=== PATIENT | female | born 1975 | race Caucasian/White ===

== ENCOUNTER → 2019-03-20 19:48 | Outpatient (CLI) | payer OTHER, SELFPAY ==
--- NOTE | 2019-03-20 19:55 | DI.RAD.S_ITS ---
PROCEDURE: XR RIBS LT MIN 3V W CXR1V INDICATIONS: cough x3 mo, r/o fx TECHNIQUE: 2 views of the left ribs were acquired, along with a single view chest. COMPARISON: None. FINDINGS: Surgical changes and devices: None. Bones and chest wall: No fractures or dislocations. No suspicious bony lesions. Overlying soft tissues appear unremarkable. Lungs and pleura: No pleural effusions or pneumothorax. Lungs appear clear. Mediastinum: Mediastinal contours appear normal. Heart size is normal. IMPRESSION: No acute fracture. No osseous lesion. If symptoms and/or clinical suspicion for pathology persist, further assessment with repeat, or advanced imaging (e.g., CT or bone scan) may be helpful for further assessment. Dictated by: Dev Jarrell M.D. on 03/20/2019 at 20:23 Approved by: Dev Jarrell M.D. on 03/20/2019 at 20:23
== END ==
LOC: DI 19:53
PROVIDERS: PCP Obstetrics & Gynecology; Referring Provider Physician Assistant; Visit Provider Physician Assistant
DX: R07.81 Pleurodynia (principal); R05 Cough
CPT/HCPCS: 71101

== ENCOUNTER → 2020-08-18 12:52 | Outpatient (CLI) | payer OTHER, SELFPAY ==
[2020-08-18 15:58] LABS: HCG Quantitative /Beta subunit 14343 mIU/mL
== END ==
PROVIDERS: PCP Family Medicine; Referring Provider Family Medicine; Visit Provider Family Medicine
DX: Z34.81 Encounter for supervision of other normal pregnancy, first trimester (principal)
CPT/HCPCS: 36415; 84702

== ENCOUNTER → 2020-08-20 07:03 | Outpatient (CLI) | payer OTHER, SELFPAY ==
--- NOTE | 2020-08-20 07:04 | DI.US.S_ITS ---
PROCEDURE: US OB <= 14 WEEKS FETUS INDICATIONS: BLEEDING OUTSIDE/PRIOR DATING DATA: Last menstrual period (LMP): 06/20/2020. LMP-based estimated date of delivery (ELLEN): 03/25/2021. First dating scan (date and location): 08/20/2020. Estimated date of delivery (ELLEN) from first dating scan: 04/14/2021. TECHNIQUE: Real-time scanning was performed of the fetus and maternal pelvic organs, with image documentation. Endovaginal scanning was also performed to better visualize the fetus and maternal ovaries. COMPARISON: None from current . FINDINGS: Embryo: There is a gestational sac, yolk sac, and small pole visualized. The crown-rump length measures up to 0.5 cm corresponding to a gestational age of 6 weeks 1 day. No heart motion was visualized on grayscale images, M-mode Doppler, or color Doppler interrogation. Measurement variability in dating: +/- 4 weeks by LMP, +/- 7 days by mean sac diameter (use before 6 weeks gestation if crown-rump length not able to be measured), +/- 5 days by crown-rump length (up to 8 weeks 6 days gestation), +/- 7 days by crown-rump length (up to 13 weeks 6 days gestation). Maternal organs: Ovaries appear within normal size limits. There is a thick-walled cyst within the right ovary measuring up to 2.2 cm compatible with a corpus luteal cyst. IMPRESSION: 1. Single intrauterine with calculated gestational age of 6 weeks 1 day, discordant with patient's dates by LMP. No heart motion was identified. The findings likely represent demise but clinical follow-up is recommended. Dictated by: Aime Arauz M.D. on 08/20/2020 at 13:06 Approved by: Aime Arauz M.D. on 08/20/2020 at 13:49
[2020-08-20 09:32] LABS: HCG Quantitative /Beta subunit 13794 mIU/mL
== END ==
PROVIDERS: PCP Family Medicine; Referring Provider Family Medicine; Visit Provider Family Medicine
DX: O20.0 Threatened abortion (principal); Z3A.01 Less than 8 weeks gestation of pregnancy
CPT/HCPCS: 36415; 76801; 76817; 84702

== ENCOUNTER → 2020-08-27 07:56 | Outpatient (CLI) | payer OTHER, SELFPAY ==
[2020-08-27 09:30] LABS: HCG Quantitative /Beta subunit 265.3 mIU/mL
== END ==
PROVIDERS: PCP Family Medicine; Referring Provider Family Medicine; Visit Provider Family Medicine
DX: O03.9 Complete or unspecified spontaneous abortion without complication (principal)
CPT/HCPCS: 36415; 84702

== ENCOUNTER → 2020-09-03 07:31 | Outpatient (CLI) | payer OTHER, SELFPAY ==
[2020-09-03 09:23] LABS: HCG Quantitative /Beta subunit 24.8 mIU/mL
== END ==
PROVIDERS: PCP Family Medicine; Referring Provider Family Medicine; Visit Provider Family Medicine
DX: Z34.81 Encounter for supervision of other normal pregnancy, first trimester (principal)
CPT/HCPCS: 36415; 84702

== ENCOUNTER → 2020-09-10 07:27 | Outpatient (CLI) | payer OTHER, SELFPAY ==
[2020-09-10 09:05] LABS: HCG Quantitative /Beta subunit 4.6 mIU/mL
== END ==
PROVIDERS: PCP Family Medicine; Referring Provider Family Medicine; Visit Provider Family Medicine
DX: O02.1 Missed abortion (principal)
CPT/HCPCS: 36415; 84702

== ENCOUNTER → 2021-12-27 15:51 | Outpatient (CLI) | payer OTHER, SELFPAY ==
--- NOTE | 2021-12-27 15:53 | DI.MG.S_ITS ---
BILATERAL DIGITAL SCREENING MAMMOGRAM 3D/2D WITH CAD: 12/27/2021 CLINICAL: Baseline exam. Routine screening. No prior exams were available for comparison. Both breasts are almost entirely fatty (category a/<25% glandular tissue). Current study was also evaluated with a Computer Aided Detection (CAD) system. No significant masses, calcifications, or other findings are seen in either breast. IMPRESSION: NEGATIVE There is no mammographic evidence of malignancy. A 1 year screening mammogram is recommended. Based on the Tyrer Cuzick model (a risk assessment model) the patient's lifetime risk is 3.7% and her 10 year risk is 0.7%. According to the ACR, ACS, and NCCN guidelines, an annual breast MRI exam along with mammogram is recommended if the patient's lifetime risk is 20% or greater. This exam was interpreted at Station ID: [id number]. NOTE: For mammograms, a report in lay terms will be sent to the patient. Approximately 15% of breast malignancies will not be visualized mammographically. In the management of a palpable breast mass, a negative mammogram must not discourage biopsy of a clinically suspicious lesion. Electronically Signed By: Pat andrade/[email or web address]:12/28/2021 13:27:26 letter sent: Normal Exam ACR BI-RADS Category 1: Negative [id number]
== END ==
PROVIDERS: PCP Family Medicine; Referring Provider Family Medicine; Visit Provider Family Medicine
DX: Z12.31 Encounter for screening mammogram for malignant neoplasm of breast (principal)
CPT/HCPCS: 77063; 77067